=== PATIENT | female | born 1995 | race Caucasian/White ===

== ENCOUNTER 2018-08-21 17:03 | Emergency (ER) | payer BC ==
[~2018-08-21] VITALS: Ht 154.9 cm; Wt 55.3 kg
[~2018-08-21 17:03] MED LIST: IBUPROFEN
[2018-08-21 17:11] VITALS: BP_SYST 110
--- NOTE | 2018-08-21 17:19 | NUR ---
Patient to ER bed 5 to gown for evaluation. Side rails up. Report given to Ramonita MARSHALL.
--- NOTE | 2018-08-21 17:33 | NUR ---
ER Dr. LANCE at bedside examining patient.
--- NOTE | 2018-08-21 17:39 | NUR ---
PATIENT CAME IN COMPLAINING OF PAIN IN RIGHT SIDE OF ABD FOR ONE WEEK. PATIENT COMPLAINING OF SHARP PAIN THAT INCREASES WHEN SHE EATS OR USES RESTROOM. PATIENT HAS HAD SOME EPISODES OF DIARRHEA. PATIENT NOT COMPLAINING OF NAUSEA, VOMITING, OR SOB. PATIENT ALERT AND ORIENTED X4.
[2018-08-21] MEDS ORDERED: KETOROLAC TROMETHAMINE 60 MG/2 ML VIAL IM ONE ×2 (17:45)
[2018-08-21 18:06] LABS: BASOPHILS % (AUTO) 0.4 % (0.0-2.0); EOSINOPHILS % (AUTO) 0.8 % (0.0-4.0); HEMATOCRIT 38.1 % (36-48); LYMPHOCYTES # (AUTO) 1.9 K/uL (1.0-5.5); LYMPHOCYTES % (AUTO) 30.1 % (20.5-51.5); MEAN CORPUSCULAR HEMOGLOBIN 31 pg (27-31); MEAN CORPUSCULAR HGB CONC 34 % (32-36); MEAN CORPUSCULAR VOLUME 91 fL (79.0-98.0); MONOCYTES # (AUTO) 0.6 K/uL (0.0-1.0); MONOCYTES % (AUTO) 9.4 % (1.7-9.3); NEUTROPHILS # (AUTO) 3.7 K/uL (1.8-7.7); NEUTROPHILS % (AUTO) 59.3 % (40.0-70.0); PLATELET COUNT (AUTO) 236 K/uL (130-430); RED BLOOD CELL COUNT(AUTO) 4.21 MIL/uL (4.2-6.2); RED CELL DISTRIBUTION WIDTH 13.7 % (9.0-15.0); WHITE BLOOD COUNT (AUTO) 6.3 K/uL (4.5-11.0)
--- NOTE | 2018-08-21 18:12 | NUR ---
PATIENT LEFT TO CT IN WHEELCHAIR IN STABLE CONDITION.
[2018-08-21 18:18] LABS: CALCIUM 9.2 mg/dL (8.4-11.0); CREATININE 0.81 mg/dL (0.55-1.30); POTASSIUM 4.1 mmol/L (3.5-5.1)
--- NOTE | 2018-08-21 18:20 | NUR ---
PATIENT BACK FROM CT IN STABLE CONDITION. PARENTS AT BEDSIDE.
[2018-08-21 18:24] LABS: ALBUMIN 3.7 g/dL (3.4-4.8); TOTAL BILIRUBIN 0.4 mg/dL (0.0-1.0)
[2018-08-21 18:40] LABS: BILIRUBIN,URINE NEGATIVE (NEGATIVE); BLOOD, URINE NEGATIVE (NEGATIVE); CLARITY/URINE CLEAR (CLEAR); COLOR,URINE YELLOW (YELLOW); GLUCOSE,URINE NEGATIVE (NEGATIVE); KETONES,URINE NEGATIVE (NEGATIVE); LEUKOCYTE ESTERASE ,URINE NEGATIVE (NEGATIVE); NITRITE, URINE NEGATIVE (NEGATIVE); PROTEIN URINE NEGATIVE (NEGATIVE); UROBILINOGEN,URINE 0.2 (0.2-1.0)
--- NOTE | 2018-08-21 19:21 | NUR ---
ENDORSED CARE TO NIGHT NURSE
[2018-08-21 19:40] VITALS: BP_SYST 110
--- NOTE | 2018-08-21 19:40 | NUR ---
Patient given written and verbal discharge instructions and verbalizes understanding. ER MD discussed with patient the results and treatment provided. Patient in stable condition. ID arm band removed. Rx of Tramadol, Magnesium given. Patient educated on pain management and to follow up with PMD. Pain Scale 0/10. Opportunity for questions provided and answered. Medication side effect fact sheet provided.
[2018-08-24 05:06] LABS: CHLAMYDIA TRACHOMATIS NAA Negative (Negative); NEISSERIA GONORRHOEAE NAA Negative (Negative)
== END 2018-08-21 19:40 | disposition home or self-care (01) ==
LOC: SED 17:03
DX: N83.202 Unspecified ovarian cyst, left side (principal); K59.00 Constipation, unspecified; F32.9 Major depressive disorder, single episode, unspecified
CPT/HCPCS: 36415; 74176; 80053; 81003; 81025; 85025; 87491; 87591; 96372; 99284; J1885